=== PATIENT | male | born 2000 | race African-American/Black ===

== ENCOUNTER 2021-07-27 14:03 | Emergency (ER) | payer SELFPAY ==
[~2021-07-27] VITALS: Ht 182.9 cm; Wt 80.0 kg
[2021-07-27] MEDS ORDERED: METOCLOPRAMIDE HCL 10MG/2ML VIAL IV STA (18:05)
[2021-07-27] MEDS ORDERED: PANTOPRAZOLE SODIUM 40 MG/VIAL IV STA (18:05)
[2021-07-27] MEDS ORDERED: ACETAMINOPHEN 325MG TABLET PO STA (18:05)
[2021-07-27 18:49] LABS: BASOPHILS % 0.5 % (0.0-2.0); EOSINOPHILS % 0.4 % (0.0-5.0); HEMATOCRIT. 43.1 % (42.0-52.0); HEMOGLOBIN. 14.2 g/dL (14.0-18.0); MEAN CORPUSCULAR HEMOGLOBIN 27.7 pg (28.0-32.0); MEAN PLATELET VOLUME 7.6 fl (7.4-10.4); MONOCYTES % 9.9 % (2.0-8.0); NEUTROPHILS % 56.2 % (40.0-76.0); PLATELET 123 x1000/uL (130-400); RED BLOOD CELL COUNT 5.13 mill/uL (4.7-6.1); RED CELL DISTRIBUTION WIDTH 15.1 % (11.6-14.6)
[2021-07-27 18:55] LABS: CHLORIDE 104 mEq/L (98-107)
[2021-07-27] MEDS ORDERED: SODIUM CHLORIDE 0.9% 1,000 ML IV NR ×2 (19:30→20:30)
[2021-07-27 23:15] VITALS: BP 139/63
== END 2021-07-27 23:25 | disposition home or self-care (01) ==
LOC: ER 14:18
DX: R07.89 Other chest pain (principal); R11.10 Vomiting, unspecified; F17.210 Nicotine dependence, cigarettes, uncomplicated; F10.10 Alcohol abuse, uncomplicated; Y90.9 Presence of alcohol in blood, level not specified
CPT/HCPCS: 36415; 71045; 80053; 83605; 83690; 84484; 85025; 96361; 96374; 96375; 99285; C9113; J2765

== ENCOUNTER 2022-02-25 21:17 | Emergency (ER) | payer SELFPAY ==
[~2022-02-25] VITALS: Ht 172.7 cm; Wt 76.0 kg
[2022-02-25 21:21] VITALS: BP 164/100
[2022-02-26] MEDS ORDERED: SODIUM CHLORIDE 0.9% 1000ML BAG (SEPSIS BOLUS) IV ONE (04:15)
[2022-02-26] MEDS ORDERED: LORAZEPAM 1MG TABLET PO ONE (04:15)
[2022-02-26 04:40] LABS: BASOPHILS % 0.5 % (0.0-2.0); EOSINOPHILS % 0.3 % (0.0-5.0); HEMATOCRIT. 43.8 % (42.0-52.0); HEMOGLOBIN. 14.2 g/dL (14.0-18.0); LYMPHOCYTES % 31.5 % (20.0-50.0); MEAN CORPUSCULAR HEMOGLOBIN 26.1 pg (28.0-32.0); MEAN CORPUSCULAR VOLUME 80.5 fL (80.0-94.0); MEAN PLATELET VOLUME 7.9 fl (7.4-10.4); MONOCYTES % 7.4 % (2.0-8.0); NEUTROPHILS % 60.3 % (40.0-76.0); PLATELET 108 x1000/uL (130-400); RED BLOOD CELL COUNT 5.45 mill/uL (4.7-6.1); RED CELL DISTRIBUTION WIDTH 14.9 % (11.6-14.6)
[2022-02-26 04:45] LABS: CHLORIDE 99 mEq/L (98-107)
[2022-02-26 04:49] LABS: ETHANOL BLOOD 22 mg/dL
[2022-02-26 04:51] LABS: *AMPHETAMINES SCREEN URINE NEGATIVE (NEGATIVE); *BARBITURATES SCREEN URINE NEGATIVE (NEGATIVE); *BENZODIAZEPINES SCREEN URINE NEGATIVE (NEGATIVE); *COCAINE SCREEN URINE PRESUMTIVE POSITIVE (NEGATIVE); CANNABINOID URINE SCREEN NEGATIVE (NEGATIVE); METHADONE URINE SCREEN NEGATIVE (NEGATIVE); OPIATES URINE SCREEN NEGATIVE (NEGATIVE); PHENCYCLIDINE URINE SCREEN NEGATIVE (NEGATIVE)
[2022-02-26] MEDS ORDERED: PENI500T MT (06:04)
[2022-02-26] MEDS ORDERED: IBUP-2029 MT (06:04)
== END 2022-02-26 06:29 | disposition home or self-care (01) ==
LOC: ER 21:17
DX: F14.10 Cocaine abuse, uncomplicated (principal); J02.9 Acute pharyngitis, unspecified; F15.10 Other stimulant abuse, uncomplicated
CPT/HCPCS: 36415; 80048; 80305; 80307; 80320; 80329; 85025; 93005; 99284; J7030; G0480